=== PATIENT | female | born 1950 | race Caucasian/White ===

== ENCOUNTER 2018-11-16 11:21 | Emergency (ER) | payer MEDICARE, OTHER ==
[~2018-11-16] VITALS: Ht 167.6 cm; Wt 74.7 kg
[2018-11-16 11:52] VITALS: Ht 167.6 cm; Wt 74.7 kg
[2018-11-16] MEDS ORDERED: ONDANSETRON 4 MG INJ IV STA (12:02)
[2018-11-16] MEDS ORDERED: HYDROmorphONE 1 MG/ML SYG IV STA (12:02)
--- NOTE | 2018-11-16 12:49 | ERD ---
ER Documentation Chief Complaint Chief Complaint Complains of a flank pain and abdominal hx of kidney stones HPI This is 68-year-old female who has a history of kidney stones is complaining of sharp left flank pain onset 4 AM today. She says the pain feels just like kidney stones and not like prior diverticulitis. She states that the pain radiates from the left flank down into the left groin. No hematuria no dysuria. Some mild nausea but no vomiting or diarrhea. No gross hematuria or recent dysuria ROS All systems reviewed and are negative except as per history of present illness. Allergies Allergies: Uncoded Allergies: SULFA (Allergy, Unknown, 11/16/18) PMhx/Soc History of Surgery: Yes (c section,hysterectomy,right knee replacemet.left foot surgery) Anesthesia Reaction: No Hx Neurological Disorder: No Hx Respiratory Disorders: No Hx Cardiac Disorders: Yes (htn) Hx Psychiatric Problems: No Hx Miscellaneous Medical Probl: Yes (high cholesterol) Hx Alcohol Use: No Hx Substance Use: No Hx Tobacco Use: No Smoking Status: Former smoker FmHx Family History: No coronary disease Physical Exam Vitals Vital Signs Date Temp Pulse Resp B/P (MAP) Pulse Ox O2 O2 Flow FiO2 Time Delivery Rate 11/16/18 98.6 100 20 191/87 96 11:52 (121) Physical Exam Const: Well-developed, well-nourished Head: Atraumatic, normocephalic Eyes: Normal Conjunctiva, PERRLA, EOMI, normal sclera, no nystagmus ENT: Normal External Ears, Nose and Mouth, moist mucus membranes. Neck: Full range of motion. No meningismus, no lymphadenopathy. Resp: Clear to auscultation bilaterally, no wheezing, rhonchi, rales Cardio: Regular rate and rhythm, no murmurs, S1 S2 present Abd: Soft, non tender x 4, non distended. Normal bowel sounds, no guarding or rebound, no pulsitile abdominal masses or bruits Skin: No petechiae or rashes, no ecchymosis , no maculopapular rash Back: Left flank tenderness Ext: No cyanosis, or edema, FROM x 4, normal inspection, neurovascular ly intact x 4 Neur: Awake and alert, STR 5/5 x 4, sensation intact x 4, no focal findings, cerebellum intact Psych: Normal Mood and Affect Result Diagram: 11/16/18 1225 11/16/18 1225 Results 24 hrs Laboratory Tests Test 11/16/18 12:14 11/16/18 12:25 Urine Color YELLOW Urine Clarity SLIGHTLY CLOUDY Urine pH 6.0 Urine Specific [place] 1.018 Urine Ketones TRACE mg/dL Urine Nitrite NEGATIVE mg/dL Urine Bilirubin 1+ mg/dL Urine Urobilinogen 2+ mg/dL Urine Leukocyte Esterase NEGATIVE Jam/ul Urine Microscopic RBC 2 /HPF Urine Microscopic WBC 3 /HPF Urine Squamous Epithelial Cells FEW /HPF Urine Bacteria FEW /HPF Urine Hemoglobin NEGATIVE mg/dL Urine Glucose NEGATIVE mg/dL Urine Total Protein NEGATIVE mg/dl White Blood Count 8.3 10^3/ul Red Blood Count 4.63 10^6/ul Hemoglobin 13.8 g/dl Hematocrit 43.0 % Mean Corpuscular Volume 92.9 fl Mean Corpuscular Hemoglobin 29.8 pg Mean Corpuscular Hemoglobin Concent 32.1 g/dl Red Cell Distribution Width 12.4 % Platelet Count 285 10^3/UL Mean Platelet Volume 9.0 fl Immature Granulocytes % 0.500 % Neutrophils % 70.1 % Lymphocytes % 18.1 % Monocytes % 8.6 % Eosinophils % 2.2 % Basophils % 0.5 % Nucleated Red Blood Cells % 0.0 /100WBC Immature Granulocytes # 0.040 10^3/ul Neutrophils # 5.9 10^3/ul Lymphocytes # 1.5 10^3/ul Monocytes # 0.7 10^3/ul Eosinophils # 0.2 10^3/ul Basophils # 0.0 10^3/ul Nucleated Red Blood Cells # 0.0 10^3/ul Sodium Level 142 mmol/L Potassium Level 4.8 mmol/L Chloride Level 103 mmol/L Carbon Dioxide Level 30 mmol/L Anion Gap 9 Blood Urea Nitrogen 22 mg/dl Creatinine 0.96 mg/dl Est Glomerular Filtrat Rate mL/min 57 mL/min Glucose Level 103 mg/dl Calcium Level 10.6 mg/dl Total Bilirubin 0.4 mg/dl Direct Bilirubin 0.00 mg/dl Indirect Bilirubin 0.4 mg/dl Aspartate Amino Transf (AST/SGOT) 27 IU/L Alanine Aminotransferase (ALT/SGPT) 20 IU/L Alkaline Phosphatase 97 IU/L Total Protein 8.0 g/dl Albumin 4.5 g/dl Globulin 3.50 g/dl Albumin/Globulin Ratio 1.28 Lipase 98 U/L Current Medications Medications Dose Sig/Sulma Start Time Status Last (Trade) Ordered Route PRN Stop Time Admin Dose Reason Admin 1 mg ONCE STAT 11/16/18 DC 11/16/18 Hydromorphone IV 12:02 12:34 HCl 11/16/18 12:03 (Dilaudid) Ondansetron 4 mg ONCE STAT 11/16/18 DC 11/16/18 HCl (Zofran IV 12:02 12:34 Inj) 11/16/18 12:03 Procedures/MDM Ordering MD: GERMAN MERCEDES DO Location: E/R Room/Bed: PROCEDURE: CT Abdomen and pelvis without contrast. CLINICAL INDICATION: Abdominal pain TECHNIQUE: CT scan of the abdomen and pelvis without contrast was performed on a multidetector high-resolution CT scan. . Coronal and sagittal reformatted images were obtained from the axial source images. Standard CT scan of the abdomen pelvis without contrast protocols were performed. The total exam CTDI equals 14.31 mGy and the total exam DLP equals 782.67 mGy- cm. One or more of the following dose reduction techniques were used: - Automated exposure control. - Adjustment of the mA and/or kV according to patient size. Use of iterative reconstruction technique. Dicom images are available COMPARISON: None. FINDINGS: Kidneys are normal in size without hydronephrosis or intra renal masses bilaterally. Numerous bilateral nonobstructing renal calcified calculi ranging between 2 mm and 7 mm. No evidence ureteral calcified calculi or dilatation. Partially contracted otherwise unremarkable urinary bladder. Absent uterus consistent with hysterectomy. No adnexal masses. Diffuse diverticular changes of the colon most pronounced in the distal descending and proximal sigmoid colon but no CT evidence of diverticulitis. Colon is otherwise unremarkable. A definite appendix is not visualized however t here is no CT evidence of appendicitis. Stomach and small bowel are unremarkable. The superior right lobe of the liver is a 6 mm low density likely a cyst. No other hepatic lesions. Spleen pancreas and adrenal glands are unremarkable. Status post prior cholecystectomy. Mild dilated extra hepatic biliary ductal system to the level pancreatic head consistent with postsurgical changes. No evidence of intra-abdominal free air, free fluid, abscesses or lymphadenopathy. Abdominal pelvic wall unremarkable. Lung bases unremarkable. Atherosclerosis of the aorta and iliac arteries without aneurysm. Status post L3-L4 laminectomy posterior fusion and fixation that appears unremarkable. Degenerative changes lower thoracic and lumbar spine without acute osseous findings are osteoblastic/osteolytic lesions. IMPRESSION: 1. Numerous bilateral nonobstructing renal calcified calculi ranging between 2 and 7 mm. 2. No obstructive uropathy bilaterally. 3. Colonic diverticulosis most prevalent distal descending and proximal sigmoid colon without evidence of diverticulitis. 4. Status post prior cholecystectomy with mild dilatation of extrahepatic biliary ductal system consistent with postsurgical changes. RPTAT:AAJJ Physician Johana Date Time Electronically viewed and signed by Dacia Layton Physician on 11/16/2018 13:14 BM/ CC: GERMAN MERCEDES DO [id number] There is no gross evidence of ureter stone or diverticulitis. The patient may have had a small stone squeak through causing some renal colic. Patient says she knows the difference between diverticulitis pain and kidney stone pain and this was like a kidney stone. Will discharge home with some Flomax and pain meds as needed Departure Diagnosis: Primary Impression: Flank pain Condition: Stable GERMAN MERCEDES DO Nov 16, 2018 12:49
[2018-11-16] MEDS ORDERED: HYDR-4011 PO (13:50)
[2018-11-16] MEDS ORDERED: TAMS-14 PO (13:50)
[2018-11-16 14:23] VITALS: BP 158/79; PULSE 72; RESP 18
== END 2018-11-16 14:26 | disposition home or self-care (01) ==
LOC: E/R 11:21
DX: R10.9 Unspecified abdominal pain (principal); I10 Essential (primary) hypertension; Z96.651 Presence of right artificial knee joint; Z87.891 Personal history of nicotine dependence
CPT/HCPCS: 36415; 74176; 80053; 81001; 83690; 85025; 96374; 96375; 99285; J1170; J2405; 81003